=== PATIENT | male | born 1990 | race Two or more races ===

== ENCOUNTER 2016-10-19 17:52 | Emergency (ER) | payer MEDICAID ==
[2016-10-19 18:12] VITALS: BMI 22.6
[2016-10-19 18:13] VITALS: RESP 18; TEMP 98.2; O2SAT 98
--- NOTE | 2016-10-19 18:35 | C.PDOC ---
History Of Present Illness 25 year old male who presents to the ER with a complaint of left ankle pain and swelling after he was jumping on a trampoline and landed on his left foot incorrectly. Patient is unable to bear weight on the left foot; denies weakness or numbness. Chief Complaint (Nursing): Lower Extremity Problem/Injury History Per: Patient History/Exam Limitations: no limitations Onset/Duration Of Symptoms: Hrs Current Symptoms Are (Timing): Still Present Recent travel outside of the [place]: No - Ankle/Foot Description Of Injury: Twisted Past Medical History Reviewed: Historical Data, Nursing Documentation, Vital Signs Vital Signs: Last Vital Signs Temp 98.2 F 10/19/16 21:24 Pulse 92 H 10/19/16 21:24 Resp 18 10/19/16 21:24 BP 135/71 10/19/16 21:24 Pulse Ox 98 10/19/16 21:26 - Medical History PMH: No Chronic Diseases Surgical History: No Surg Hx Family History: States: Unknown Family Hx - Social History Hx Tobacco Use: Yes Hx Alcohol Use: No Hx Substance Use: No - Immunization History Hx Tetanus Toxoid Vaccination: Yes Hx Influenza Vaccination: Yes Hx Pneumococcal Vaccination: No Review Of Systems Musculoskeletal: Positive for: Foot Pain Neurological: Negative for: Weakness, Numbness Physical Exam - Physical Exam Appears: Non-toxic Skin: Normal Color, Warm, Dry Head: Atraumatic, Normacephalic Oral Mucosa: Moist Extremity: Tenderness (Left foot, bilateral malleolar, most to medial aspect), Swelling (Left foot, bilateral malleolar) Pulses: Left Dorsalis Pedis: Normal, Right Dorsalis Pedis: Normal Neurological/Psych: Oriented x3, Normal Speech, Normal Cognition ED Course And Treatment O2 Sat by Pulse Oximetry: 98 (Room air) Pulse Ox Interpretation: Normal Medical Decision Making Medical Decision Making: Plan: Toradol Left ankle x-ray 650 pm fx noted in distal tibia, podiatry resident paged. discussed with podiatry resident,he will come see patient 734 pm 917 pm pt seen by podiatry, posterior splint applied; crutch training, to be discharge with nsaids and percocet, f/u Dr Dean tomorrow in clinic 8-12 Disposition Counseled Patient/Family Regarding: Studies Performed, Diagnosis, Need For Followup, Rx Given - Disposition Referrals: Deanna Dean DPM [Staff Provider] - Disposition: HOME/ ROUTINE Disposition Time: 21:20 Condition: STABLE Additional Instructions: Use crutches, no weight bearing. Follow up in clinic tomorrow between 8am and 12am. Ibuprofen 600 mg by mouth every 6 hours, Percocet one-two pills by mouth every 6 hours for severe pain. Prescriptions: Ibuprofen [Motrin] 600 mg PO TID #30 tab oxyCODONE/Acetaminophen [Percocet 5/325 mg Tab] 1 ea PO Q6 #16 tab Instructions: Ankle Fracture (ED) Forms: General Discharge Instructions, [facility] (Uzbek), Work Excuse - Clinical Impression Clinical Impression: Left tibial fracture - Scribe Statement The provider has reviewed the documentation as recorded by the Scribkenny Avina All medical record entries made by the Scribe were at my direction and personally dictated by me. I have reviewed the chart and agree that the record accurately reflects my personal performance of the history, physical exam, medical decision making, and the department course for this patient. I have also personally directed, reviewed, and agree with the discharge instructions and disposition.
[2016-10-19] MEDS ORDERED: Oxycodone/Acetaminophen 5/325 mg Tab PO STA (21:14)
--- NOTE | 2016-10-19 21:22 | CP.PCM.CON ---
History of Present Illness - History of Present Illness History of Present Illness: Patient is a 25 year old male with no pertinent past medical history who presents to the ED complaining of left ankle pain. Patient states that he was bouncing on a trampoline with his daughter earlier this evening when he fell, twisted his ankle and immediately felt pain. Patient states that pain is worst on his medial ankle but that he also has pain on his lateral ankle. Patient was given Toradol upon arrival to ED. Patient denies taking any medications currently, denies allergies and past surgical history. He admits to smoking cigarrettes occasionally. Patient denies any further pedal complaints at this time. Patient denies N/V/F/C/CP/SOB. Review of Systems - Review of Systems Review of Systems: ROS unremarkable outside of HPI Past Patient History - Past Social History Smoking Status: Light Smoker < 10 Cigarettes Daily - PSYCHIATRIC Hx Substance Use: No - SURGICAL HISTORY Hx Surgeries: Yes Hx Orthopedic Surgery: Yes (METAL IN MY JAW PER PATIENT) - ANESTHESIA Hx Anesthesia: Yes Hx Anesthesia Reactions: No Meds Allergies/Adverse Reactions: Allergies Allergy/AdvReac Type Severity Reaction Status Date / Time No Known Allergies Allergy Verified 10/19/16 18:11 Physical Exam - Constitutional Appears: Well, Non-toxic, No Acute Distress - Extremities Exam Additional comments: LLE focused exam: Vasc: DP/PT pulses fully palpable 2/4. CFT < 3 seconds to all digits. Skin temperature warm to warm from proximal to distal. Non-pitting edema noted to level of medial and lateral malleoli. Neuro: Epicritic and protective sensation grossly intact Derm: No open lesions, wounds, maceration, xerosis, ecchymosis or abnormal pigmentation noted at this time MSK: POP to medial and lateral malleoli. ROM at ankle joint and STJ limited due to pain - Neurological Exam Neurological exam: Alert, Oriented x3 - Psychiatric Exam Psychiatric exam: Normal Affect, Normal Mood Results - Vital Signs Recent Vital Signs: Last Vital Signs Temp 98.2 F 10/19/16 18:12 Pulse 86 10/19/16 18:12 Resp 18 10/19/16 18:12 BP 123/60 10/19/16 18:12 Pulse Ox 98 10/19/16 19:37 Assessment & Plan - Assessment and Plan (Free Text) Assessment: 25 year old male seen in ED for nondisplaced bimalleolar left ankle fracture Plan: Patient seen and evaluated Charts, labs and vitals reviewed Plan discussed with attending Dr. Dean Xray reviewed: + for medial malleolar fracture and distal fibular avulsion fracture Patients left leg dressed with posterior splint Patient DC'd with crutches and two Percocet Patient to follow up at [facility] with Dr. Dean tomorrow 10/20 for further evaluation - Date & Time Date: 10/19/16 Time: 21:28
[2016-10-19] MEDS ORDERED: Oxycodone/Acetaminophen 5/325 mg Tab ONE (21:23)
[2016-10-19 21:25] VITALS: BP 135/71; PULSE 92
--- NOTE | 2016-10-20 10:09 | RAD ---
PROCEDURE: Left Ankle Radiographs. HISTORY: landed on foot wrong bilateral malleolar swell COMPARISON: None FINDINGS: BONES: Mildly displaced posterior distal tibia fracture. 5 x 1 mm thin linear density medial to the tibia, possibly ossific fragment versus calcification. JOINTS: No dislocation. SOFT TISSUES: Soft tissue swelling. No evidence of radiopaque foreign body. OTHER FINDINGS: None. IMPRESSION: Mildly displaced posterior distal tibia fracture. 5 x 1 mm thin linear density medial to the tibia, possibly ossific fragment versus calcification. Soft tissue swelling.
== END 2016-10-19 21:34 | disposition home or self-care (01) ==
LOC: C.ER 17:52
DX: S82.302A Unspecified fracture of lower end of left tibia, initial encounter for closed fracture (principal); X50.1XXA Overexertion from prolonged static or awkward postures, initial encounter; Y93.44 Activity, trampolining; Y92.89 Other specified places as the place of occurrence of the external cause
CPT/HCPCS: 29515; 73610; 96372; 99283; J1885